=== PATIENT | female | born 1995 | race Caucasian/White ===

== ENCOUNTER → 2023-08-27 13:17 | Outpatient (CLI) | payer OTHER, SELFPAY ==
--- NOTE | 2023-08-27 13:21 | DI.RAD.S_ITS ---
PROCEDURE: FL BARIUM SWALLOW INDICATIONS: Gastro-esophageal reflux disease without esophagit COMPARISON: None. FINDINGS: Function: There were a few episodes of slightly delayed transit of ingested oral contrast during recumbent/AYALA position but otherwise normal esophageal peristalsis. No elicited gastroesophageal reflux. Transit of a calibrated barium tablet through the esophagus into the stomach was not able to be assessed because the patient was unable to swallow the tablet. Morphology: Air-contrast images demonstrate normal mucosal morphology. Single contrast views show no esophageal strictures, extrinsic mass effects, or diverticula. Limited images of the stomach demonstrate normal appearance. IMPRESSION: A few episodes of slightly delayed transit of ingested oral contrast but otherwise normal esophageal peristalsis. Overall, negative barium swallow examination. No elicited episodes of gastroesophageal reflux. Further evaluation with direct visualization can be considered. Dictated by: Julius Antoine M.D. on 08/27/2023 at 21:12 Approved by: Julius Antoine M.D. on 08/27/2023 at 21:25
== END ==
PROVIDERS: Referring Provider Internal Medicine; Visit Provider Internal Medicine
DX: K21.9 Gastro-esophageal reflux disease without esophagitis (principal)
CPT/HCPCS: 74220

== ENCOUNTER 2024-01-23 11:26 | Day surgery (SDC) | payer OTHER, SELFPAY ==
--- NOTE | 2024-01-23 | PATH_ITS ---
[facility] Accession Number: [id number] No. of containers..02 Tissue . 01 Material submitted: . PART A: duodenum - DUODENUM PART B: stomach - STOMACH . 01 Clinical history: . A: ABNORMAL ON CT B: R/O H.PYLORI . 01 Diagnosis: Part A: DUODENUM: Duodenal mucosa with no diagnostic alterations. No active inflammation and no evidence of celiac disease. No dysplasia or malignancy identified. See comment. . Specimen Comments: The clinical history of abnormal appearance on CT scan is noted. No significant histologic alterations are seen in the multiple levels examined. Clinical correlation is recommended. . Part B: STOMACH: Gastric mucosa with no diagnostic alterations. No Helicobacter organisms identified. No intestinal metaplasia, dysplasia, or malignancy identified. [facility] 01/28/20241320 Local . 01 Electronically signed: . Miguel Stewart MD, Pathologist NPI- [id number] . 01 Gross description: . A. Received in formalin with two patient identifiers and duodenum are three harris soft tissue fragments, 0.3 to 0.4 cm in greatest dimension, submitted in A1. . B. Received in formalin with two patient identifiers and stomach, is a single harris soft tissue fragment, 0.3 cm in greatest dimension, submitted in B1. (KB:[id number]) /MRV 01/28/20241320 Local . 01 Microscopic: . Part B: STOMACH: Few scattered lymphocytes are present among the stroma. An immunohistochemical stain was performed to evaluate for Helicobacter organisms and is negative. The control stains appropriately. * This test was developed and the performance characteristics were validated by [facility]. It has not been cleared or approved by the Food and Drug Administration. . 01 Pathologist provided ICD-10: R93.3 . 01 CPT . 184005, 774124, [id number] Specimen Comment: A courtesy copy of this report has been sent to [phone] Performed at: [address] [facility] [address], [place], [place] [id number] MD Miguel Stewart MD Phone: [phone]
[2024-01-23] MEDS: ONDANSETRON 4 MG/2 ML INJ IV (12:04)
[2024-01-23 12:08] VITALS: BP 112/80; PULSE 89; RESP 16; TEMP 36.7; O2SAT 100
[2024-01-23] MEDS: LACTATED RINGERS 1,000 ML 42 ML IV (12:15)
--- NOTE | 2024-01-23 12:21 | PM.HP.1 ---
History of Present Illness History of Present Illness Chief complaint: EGD Narrative: Recurrent abdominal pain with CT scan showing possible mild narrowing of the duodenum with moderate distention of the stomach. Rule out gastroduodenal abnormality PFSH Social History Smoking Status: Never smoker alcohol intake: current Meds Home Medications and Allergies Home Medications Medication Instructions Recorded Confirmed Type bupropion HCl 100 mg tablet 100 mg PO DAILY 01/23/24 01/23/24 History metoclopramide HCl 10 mg tablet 10 mg PO 01/23/24 History naproxen 500 mg tablet 500 mg PO BID 01/23/24 01/23/24 History omeprazole 20 mg capsule,delayed 20 mg PO DAILY 01/23/24 01/23/24 History release Allergies Allergy/AdvReac Type Severity Reaction Status Date / Time No Known Drug Allergies Allergy Verified 01/23/24 12:00 Exam Vital Signs (past 8 hours): - 01/23/24 12:08 Temperature 98.1 F Pulse Rate 89 Respiratory Rate 16 Blood Pressure 112/80 Pulse Oximetry 100 Oxygen Delivery Method Room Air Oxygen Delivery Method Room Air Narrative Exam Narrative: Oropharynx free of lesions Abdomen is soft with mild diffuse tenderness but more so in the left upper quadrant. Of note patient is quite anxious Assessment & Plan Assessment & Plan narrative: Left upper quadrant abdominal pain with GE reflux rule out intrinsic disease Patient be set up for EGD today. Biopsies will be taken. Careful attention to the pylorus and duodenal bulb and sweep will be made. Time-Based Coding :: [TOTAL MINUTES] spent with patient and on the chart (including review of chart, obtaining history, exam, reviewing outside data, placing orders, documenting exam and treatment plan, and counseling patient) on [DATE].
[2024-01-23 13:03] VITALS: BP 97/63; PULSE 74; RESP 17; TEMP 36.3; O2SAT 93
[2024-01-23 13:09] VITALS: BP 99/71; PULSE 75; RESP 17; O2SAT 95
[2024-01-23 13:14] VITALS: BP 107/72; PULSE 74; RESP 14; TEMP 36.6; O2SAT 96
--- NOTE | 2024-01-23 13:15 | PM.OP.EGD ---
Operative Date/Time/Diagnoses Date of procedure: 01/23/24 Pre-op diagnosis: See indication and findings Procedure & Clinicians Study performed: EGD Indications: Epigastric and left upper quadrant abdominal pain rule out peptic Surgeon: Farida Ospian Procedure Notes Procedure in detail: After informed consent was obtained the patient was placed in left lateral decubitus position. The video upper upper scope was placed into the oropharynx and with the patient's help swallowed into the esophagus. The esophagus stomach and duodenum were carefully examined. On withdrawal, retroflexed view the GE junction was performed. The scope was removed the patient tolerated the procedure well. Blood loss none Complications none Sedation mac Findings 1. Normal esophagus 2. Normal GE junction 3. Scattered patchy erythema in the stomach biopsies taken to rule out Helicobacter 4. Normal pylorus and duodenal bulb and sweep. Biopsies taken Cathryn should follow up with her primary GI provider which is Charlie Walsh.
== END 2024-01-23 13:42 | disposition home or self-care (01) ==
PROVIDERS: Referring Provider Internal Medicine Gastroenterology; Visit Provider Internal Medicine Gastroenterology
PROC: 0DJ08ZZ Inspection of Upper Intestinal Tract, Via Natural or Artificial Opening Endoscopic (ICD-10-PCS; CPT 43235; principal; 2024-01-23 13:00)
DX: R10.12 Left upper quadrant pain (principal)
CPT/HCPCS: 43239; 81025; J2405